=== PATIENT | male | born 1970 | race Caucasian/White ===

== ENCOUNTER 2017-12-11 04:06 | Emergency (ER) | payer OTHER ==
[~2017-12-11] VITALS: Ht 188 cm; Wt 103.9 kg
== END 2017-12-11 04:50 | disposition home or self-care (01) ==
LOC: ER 04:06
DX: K21.0 Gastro-esophageal reflux disease with esophagitis (principal); B20 Human immunodeficiency virus [HIV] disease; I25.2 Old myocardial infarction
CPT/HCPCS: 99282